=== PATIENT | male | born 1945 | race Caucasian/White ===

== ENCOUNTER → 2021-05-06 10:40 | Outpatient (CLI) | payer OTHER, SELFPAY ==
--- NOTE | 2021-05-06 | DI.US.S_ITS ---
PROCEDURE: US ABD AORTA ANEURYSM SCREEN INDICATIONS: HISTORY OF NICITONE USE TECHNIQUE: Real time scanning was performed of the aorta and iliac arteries, with image documentation. COMPARISON: None. FINDINGS: Aorta: Proximal aortic diameter measures 3.6 x 3.7 cm. Mid-aorta measures 2.4 cm. Distal aortic diameter is 3.4 x 3.5 cm. Iliac arteries: Right common iliac artery is heavily calcified and cannot be measured. Left common iliac artery measures 2.0 cm. IMPRESSION: 1. There is aneurysmal dilatation of the proximal abdominal aorta and distal abdominal aorta. Maximum diameter is 3.7 cm. Comment: Follow-up recommendations for aneurysms of the size are for follow-up ultrasound in 3 years. Dictated by: Gregg Campo M.D. on 05/06/2021 at 15:25 Approved by: Gregg Campo M.D. on 05/06/2021 at 15:43
== END ==
PROVIDERS: PCP Family Medicine; Referring Provider Family Medicine; Visit Provider Family Medicine
DX: Z87.891 Personal history of nicotine dependence (principal); I71.4 Abdominal aortic aneurysm, without rupture
CPT/HCPCS: 76706

== ENCOUNTER → 2021-08-08 13:59 | Outpatient (CLI) | payer OTHER, SELFPAY ==
[2021-08-08 17:00] LABS: COVID19 -Nasal RAPID Negative (Negative)
== END ==
PROVIDERS: PCP Family Medicine; Visit Provider Family Medicine Sleep Medicine
DX: Z20.822 Contact with and (suspected) exposure to COVID-19 (principal)
CPT/HCPCS: 87635; C9803

== ENCOUNTER 2021-08-09 12:26 | Day surgery (SDC) | payer OTHER, SELFPAY ==
--- NOTE | 2021-08-09 12:23 | PM.HP.1 ---
History of Present Illness History of Present Illness Date Patient Seen: 08/09/21 Chief complaint: MOC Narrative: 75 year old male comes in today for consideration of a screening colonoscopy. Last colonoscopy in 2016 indicated for history of colon polyps revealed grade 1 internal hemorrhoids and scattered sigmoid diverticulosis. Five year recall recommended. Prior to that, had a colonoscopy in 1999 that showed a sigmoid polyp at 10 cm that was removed, biopsy benign. Other than some baseline constipation, there have been no lower GI symptoms suggesting disease such as change in bowel habits, bleeding, abdominal pain or anemia. There's been no family history of colon cancer or colon polyps. Overall health issues have been stable, including no major cardiac events for at least 6 weeks. PCP: Dr. Allen Past medical history AAA without rupture, 3.7 cm, 04/2021 History of tobacco use BPH Hypertension Constipation Gout Systolic murmur, 2/ Past surgical history: Tonsillectomy Colonoscopy Family history: Father: Prostate cancer Mother: Melanoma, asthma Social history: , two kids. 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 Two alcoholic drinks per day. History of tobacco use. Patient History Medical History Constipation Gout History of abdominal aortic aneurysm History of BPH History of cardiac murmur History of tobacco use Surgical History (Updated 08/09/21 @ 13:18 by Minnie Brenner RN) Hx of colonoscopy Hx of tonsillectomy Meds Home Medications and Allergies Home Medications Medication Instructions Recorded Confirmed Type tamsulosin 0.4 mg capsule 0.4 mg PO DAILY 08/09/21 08/09/21 History Allergies Allergy/AdvReac Type Severity Reaction Status Date / Time No Known Drug Allergies Allergy Verified 08/09/21 12:51 Review of Systems Review of Systems Narrative: All remaining ROS were reviewed and negative except as addressed. Exam Narrative Exam Narrative: GENERAL: Alert and oriented, appearing stated age and in no acute distress. HEENT: Head normocephalic/atraumatic. Extraocular movements intact. LUNGS: Clear to ausculation bilaterally, no wheezes, rhonchi or rales. CV: Normal S1 and S2 with regular rate and rhythm, no audible murmurs, rubs or gallops. ABDOMEN: Soft, non-tender, non-distended, no organomegaly. Positive bowel sounds. EXTREMITIES: No clubbing, cyanosis, or edema. NEURO: Cranial nerves II through XII grossly intact, no focal deficits. PSYCH: Alert and oriented x 3. SKIN: No concerning lesions. Assessment & Plan Assessment & Plan narrative: 1. History of colon polyps 2. History of sigmoid diverticulosis 3. History of grade 1 internal hemorrhoids 4. Screening for colon cancer Plan for colonoscopy. The nature and character of the procedure as well as anticipated results were discussed. The possibility of not completing the procedure was also discussed. Possible complications including aspiration pneumonia, bleeding, perforation and reaction to medications either for sedation or preparation and missed lesions were discussed. Questions were answered and proceeding to the colonoscopy was elected. Informed consent signed. I sincerely appreciate the referral allowing me to participate in this patient's care. Please contact me with any questions or concerns.
--- NOTE | 2021-08-09 12:33 | PM.OP.COLON ---
Operative Date/Time/Diagnoses Date of procedure: 08/09/21 Procedure Notes SCOAP/Timeout: 1:59 p.m. Procedure in detail: ENDOSCOPIST: Emi Garcia MD Sedation RN: Malaika Murphy RN Sedation start time: 2:00 p.m. Sedation end time: 2:40 p.m. PROCEDURE: Colonoscopy INDICATIONS: 1. History of colon polyps 2. History of sigmoid diverticulosis 3. History of grade 1 internal hemorrhoids 4. Screening for colon cancer MEDICATION: Levsin 0.125 mg sublingual, incremental doses of Versed and fentanyl until appropriate level sedation achieved. ASA CLASS: 2 CECAL WITHDRAWAL TIME: 10 minutes COMPLICATIONS: None. EXTENT OF PROCEDURE: Cecum. QUALITY OF PREP: Good with portions of liquid stool. PROCEDURE: Prior to insertion of the colonoscope, a digital rectal examination was accomplished with circumferential palpation of the distal rectal mucosa without significant findings being noted. The high-definition colonoscope was passed into the rectum in the usual fashion and advanced over to the cecum with some difficulty secondary to tortuosity. The ileocecal valve, appendiceal stoma, and medial wall all could be inspected and no abnormalities were seen. ASCENDING COLON: As the colonoscope was withdrawn, care was taken to expose and inspect the haustral folds and no abnormalities were seen. HEPATIC FLEXURE: Normal, no polyps, diverticula or other abnormalities. TRANSVERSE COLON: Normal, no polyps, diverticula or other abnormalities. DESCENDING COLON: Few scattered diverticula, otherwise, normal, no polyps, or other abnormalities. SIGMOID COLON: Few scattered diverticula, otherwise, normal, no polyps, or other abnormalities. RECTUM: Normal. J maneuver was produced. There was no significant perianal disease. The J maneuver was broken. The remainder of the rectum was inspected and there was no external hemorrhoid disease. The scope was withdrawn. IMPRESSION: 1. Normal colonoscopy 2. Left-sided diverticulosis, mild PLAN: 1. Secondary to age, this can be patient's last colonoscopy. The possibility of a missed lesion including a malignancy has been discussed with the patient previously. Potential alarm symptoms have been discussed and should be reported immediately.
[2021-08-09 12:53] VITALS: BP 219/102; PULSE 78; RESP 16; TEMP 36.9; O2SAT 98
[2021-08-09 12:55] VITALS: BMI 27.3
[2021-08-09 13:00] VITALS: BP 226/100
[2021-08-09] MEDS: HYOSCYAMINE 0.125 MG TABLET PO (13:05)
[2021-08-09] MEDS: LACTATED RINGERS 1,000 ML 200 ML IV (14:00)
[2021-08-09] MEDS: MIDAZOLAM 5 MG/5 ML VIAL IV (14:00)
[2021-08-09] MEDS: fentaNYL 250 MCG/5 ML INJ IV (14:42)
[2021-08-09 14:47] VITALS: BP 152/86; PULSE 74; RESP 21; TEMP 36.8; O2SAT 98
[2021-08-09 14:52] VITALS: BP 172/90; PULSE 69; RESP 13; O2SAT 100
[2021-08-09 14:57] VITALS: BP 181/87; PULSE 67; RESP 15; O2SAT 100
[2021-08-09 15:02] VITALS: BP 184/94; PULSE 66; RESP 15; TEMP 36.6; O2SAT 100
== END 2021-08-09 15:17 | disposition home or self-care (01) ==
PROVIDERS: PCP Family Medicine; Referring Provider Student in an Organized Health Care Education/Training Program; Visit Provider Student in an Organized Health Care Education/Training Program
PROC: 0DJD8ZZ Inspection of Lower Intestinal Tract, Via Natural or Artificial Opening Endoscopic (ICD-10-PCS; CPT 45378; principal; 2021-08-09 13:45)
DX: Z12.11 Encounter for screening for malignant neoplasm of colon (principal); Z86.010 Personal history of colon polyps; K57.30 Diverticulosis of large intestine without perforation or abscess without bleeding
CPT/HCPCS: G0105; J2250; J3010

== ENCOUNTER 2021-12-21 12:57 | Emergency (ER) | payer OTHER, SELFPAY ==
[2021-12-21] VITALS (33 sets, daily range): BP systolic 185–263; BP diastolic 86–123; PULSE 66–82; RESP 12–23; TEMP 36.8; O2SAT 94–100; BMI 26.6
--- NOTE | 2021-12-21 13:10 | DI.RAD.S_ITS ---
PROCEDURE: XR CHEST 1V INDICATIONS: chest pain TECHNIQUE: One view of the chest was acquired. COMPARISON: None. FINDINGS: Surgical changes and devices: None. Lungs and pleura: Lungs are clear. No pleural effusions or pneumothorax. Mediastinum: Mediastinal contours appear normal. Heart size is normal. Bones and chest wall: No suspicious bony lesions. Overlying soft tissues appear unremarkable. IMPRESSION: No acute cardiopulmonary pathology. Dictated by: Shahab Amezquita M.D. on 12/21/2021 at 13:39 Approved by: Shahab Amezquita M.D. on 12/21/2021 at 13:47
--- NOTE | 2021-12-21 13:50 | DI.CT.S_ITS ---
PROCEDURE: CT ANGIO CHEST ABDOMEN PELVIS INDICATIONS: syncope extreme HTN TECHNIQUE: Precontrast 5 mm thick sections acquired from the lung apices to the iliac crests. After the administration of intravenous contrast, 2.5 mm thick sections again acquired from the lung apices to the iliac crests. Maximum intensity projection (MIP) oblique sagittal and coronal reformats were then acquired. For radiation dose reduction, the following was used: automated exposure control. COMPARISON: None. FINDINGS: Chest: Cardiovascular: Heart size is overall normal, however, the left ventricular wall appears thickened. No evidence of central pulmonary embolism, aortic aneurysm or dissection. Dense coronary artery vascular calcification. Lungs and pleural spaces: The lung terry are clear without nodule, infiltrate or interstitial prominence. Pleural spaces show no effusion or pneumothorax. Lymph nodes: No mediastinal, hilar or axillary adenopathy. Mediastinum: Unremarkable. No hiatal hernia. Thyroid within normal limits. Chest Wall and Bones: Unremarkable. No acute fracture. Left axillary 2.2 cm subcutaneous nodule, probable sebaceous cyst. Focal edema noted in the subcutaneous tissue over the left pectoralis muscle Abdomen and Pelvis: Liver: Normal in size and attenuation. No contour deformity present. Biliary system: No calcified cholelithiasis or pericholecystic inflammation. No intra or extrahepatic bile duct dilatation. Pancreas: Unremarkable without mass or inflammation evident. Spleen: Normal in size and density. Adrenals: Normal morphology and density. Reproductive system: Prostatic hypertrophy elevates the bladder floor. Urinary system: Normal renal size and attenuation. No renal calculi, hydronephrosis, or solid mass present. Urinary bladder unremarkable. Gastrointestinal system: The bowel is unremarkable with no evidence of bowel obstruction or inflammation. The stomach appears unremarkable. Appendix: No findings to suggest acute appendicitis. Lymph nodes: No mesenteric or retroperitoneal adenopathy. Peritoneal spaces: No free air. No free fluid. Vasculature: Distal infrarenal abdominal aortic aneurysm measures 3.5 x 3.3 cm. There is a 2nd abdominal aortic aneurysm at the level the renal arteries measuring 3.5 cm as well. Atherosclerotic vascular calcification noted. Abdominal wall: Bilateral inguinal hernia(s) contain fat without bowel involvement. Musculoskeletal: Normal bone mineralization. Degenerative disc disease and arthropathy noted in lower lumbar spine. No acute fractures. Endplate sclerosis noted associated with L4-5, at L1, and the superior endplate of the T11 IMPRESSION: 1. Infrarenal abdominal aortic aneurysms measure up to 3.5 cm. No evidence of aortic dissection in the chest, abdomen and pelvis. 2. Significant subcutaneous edema over the left pectoralis muscle. Correlate with history of trauma. No rib fracture. 3. Degenerative changes as above Approved by: Keegan Cohen M.D. on 12/21/2021 at 14:32
--- NOTE | 2021-12-21 13:50 | DI.CT.S_ITS ---
PROCEDURE: CT HEAD/BRAIN WO CON INDICATIONS: syncope TECHNIQUE: Noncontrast 5 mm thick angled axial sections acquired from the foramen magnum to the vertex, with coronal and sagittal reformats. For radiation dose reduction, the following was used: automated exposure control, adjustment of mA and/or kV according to patient size. COMPARISON: None. FINDINGS: Image quality: Excellent. CSF spaces: Basal cisterns are patent. No extra-axial fluid collections. Ventricles are normal in size and shape. Brain: No midline shift. No intracranial masses or hemorrhage. Mahmood-white matter interface is normal. Moderate cerebral and cerebellar volume loss with multifocal white matter chronic ischemic change noted. Atherosclerotic calcification noted associated with cavernous segments of both internal carotid arteries. Skull and face: Calvarium and visualized facial bones are intact, without suspicious lesions. Sinuses: Visualized sinuses and mastoids are clear. IMPRESSION: Atrophy and chronic ischemic change without acute hemorrhage or mass effect Approved by: Keegan Cohen M.D. on 12/21/2021 at 14:33
[2021-12-21 13:55] LABS: Add Manual Diff / Slide Review NO; Basophils Absolute Auto 100 /uL (0-100); Basophils Percent Auto 1.3 % (0-2); Eosinophils Absolute Auto 100 /uL (0-450); Eosinophils Percent Auto 1.6 % (2-4); Hemoglobin 15.8 g/dL (13.5-17.5); Lymphocytes Absolute Auto 1400 /uL (1100-4500); Lymphocytes Percent Auto 15.8 % (25-40); Mean Corpuscular HGB Conc 35.2 % (30-36); Mean Corpuscular Hemoglobin 32.1 PG (26-34); Mean Corpuscular Volume 91.2 fL (80-100); Monocytes Absolute Auto 700 /uL (0-900); Monocytes Percent Auto 7.5 % (3-14); Neutrophils Absolute Auto 6600 /uL (1500-7000); Neutrophils Percent Auto 73.8 % (50-75); Platelet Count 283 X10^3/uL (150-400); Red Blood Cell Count 4.93 X10^6/uL (4.5-5.9); Red Cell Distribution Width 12.9 % (11.6-14.8); White Blood Cell Count 8.9 X10^3/uL (4.5-11.0)
--- NOTE | 2021-12-21 13:56 | ED.SYNCOPE ---
HPI - Syncope General Chief Complaint: Syncope Stated Complaint: Fall hit to chest Time Seen by Provider: 12/21/21 13:15 Source: patient Mode of arrival: Ambulatory History of Present Illness HPI narrative: Patient is a 76-year-old male who was noncompliant with his blood pressure medications presenting today 1st with a syncopal episode. He said he was walking on the beach when suddenly he fell down face forward. He has a bruise on left side of his chest. He remembers falling possibly brief loss of consciousness but he was able to get himself. He has minimal headache no numbness tingling or weakness. No palpitations dizziness lightheadedness abdominal pain nausea or vomiting. States that this happened 1 other time a couple months ago. He has had some low-grade headaches. He is noted to be extremely hypertensive with a blood pressure of 263/123 which is repeated at 249/116. Patient is relatively asymptomatic except he as had 2 syncopal episodes for the past couple of months. Related Data Home Medications Medication Instructions Recorded Confirmed tamsulosin 0.4 mg capsule 0.4 mg PO DAILY 08/09/21 12/14/21 Allergies Allergy/AdvReac Type Severity Reaction Status Date / Time No Known Drug Allergies Allergy Verified 12/14/21 08:54 Review of Systems Review of Systems Narrative: GENERAL: Denies chills, fatigue, malaise, fever, sweats, travel HEENT: Denies sinus pain, ear pain, sore throat, difficulty swallowing, neck pain RESPIRATORY: Denies dyspnea, cough, wheezing, hemoptysis, sputum. CARDIOVASCULAR:+ syncope GASTROINTESTINAL: Denies nausea, vomiting, abdominal pain, diarrhea, constipation, melena. : Denies dysuria, frequency, incontinence, hematuria, urinary retention, flank pain. MUSCULOSKELETAL: Denies weakness, joint pain, or bony pain SKIN: No rash, no erythema, no pruritus NEUROLOGIC: Denies weakness, dizziness, headache, numbness, change in speech, confusion PSYCHIATRIC: No concerning psychosocial issues. 12 point review of systems is negative except for those stated above and HPI Patient History Medical History Constipation Gout History of abdominal aortic aneurysm History of BPH History of cardiac murmur History of tobacco use Surgical History Hx of colonoscopy Hx of tonsillectomy Social History household members: spouse Smoking Status: Former smoker alcohol intake: current Smoking Status: Former smoker alcohol intake frequency: 0-2 drinks per day Substance Use Type: does not use Exam Initial Vital Signs Initial Vital Signs: Vital Signs Temperature 98.3 F 12/21/21 13:02 Pulse Rate 82 12/21/21 13:02 Respiratory Rate 16 12/21/21 13:02 Blood Pressure 263/123 H 12/21/21 13:02 Pulse Oximetry 99 12/21/21 13:02 Oxygen Delivery Method 12/21/21 13:02 GENERAL: Alert pleasant 36-year-old and in no acute distress. HEENT: Head atraumatic,EOMI, pupils reactive, face symmetric, moist mucous membranes CARDIOVASCULAR: Regular rate and rhythm without murmurs, rubs or gallops. RESPIRATORY: Breath sounds equal bilaterally, no wheezes rales or rhonchi. ABDOMEN: Soft, nontender. Normoactive bowel sounds all 4 quadrants. No guarding or rebound. EXTREMITIES: Normal range of motion, no clubbing or edema. Neurovascularly intact NEUROLOGICAL: Alert and oriented x4.Normal gait and speech. Cranial nerves II through XII grossly intact. Good [id number], good [id number], strength equal bilaterally, no dysarthria or aphasia, sensation in tact to soft touch bilaterally, no visual changes, no facial droop SKIN: Warm, dry, no laceration, no petechiae, no rashes or lesions. Scores NIH Stroke Scale Level of Conciousness: Alert, keenly responsive Ask month/age: Answers both questions correctly. Open/close eyes, close hand: Performs both tasks correctly Best gaze horizontal: Normal Visual terry: No visual loss Facial palsy: Normal symetrical movement Left arm drift: No drift for full 10 sec Right arm drift: No drift for full 10 sec Left leg drift: No drift for full 5 sec Right leg drift: No drift for full 5 sec Limb ataxia: Absent Sensory on face/arms/legs: Normal, no sensory loss Best language: No aphasia, normal Dysarthria: Normal Extinction or inattention: No abnormality Total NIH Stroke scale score: 0 Course Orders Ordered: Discontinued Medications Labetalol HCl (Labetalol 20 Mg/4 Ml Syringe) 10 mg IV NOW ONE Stop: 12/21/21 13:51 Last Admin: 12/21/21 14:36 Dose: 10 mg Documented By: LATOYA Losartan Potassium (Losartan 50 Mg Tablet) 50 mg PO NOW ONE Stop: 12/21/21 17:01 Last Admin: 12/21/21 17:40 Dose: 50 mg Documented By: BS Metoprolol Succinate (Metoprolol Er 50 Mg Tablet) 50 mg PO NOW ONE Stop: 12/21/21 17:01 Last Admin: 12/21/21 17:41 Dose: 50 mg Documented By: BS Vital Signs Vital signs: Vital Signs - 8 hr 12/21/21 13:02 12/21/21 13:36 12/21/21 13:38 Temperature 98.3 F Pulse Rate 82 78 77 Respiratory Rate 16 23 18 Blood Pressure 263/123 H Pulse Oximetry 99 99 99 Oxygen Delivery Method Room Air 12/21/21 13:38 12/21/21 14:07 12/21/21 14:27 Temperature Pulse Rate 77 67 Respiratory Rate 18 Blood Pressure 249/116 H 185/86 H Pulse Oximetry 96 96 Oxygen Delivery Method Room Air 12/21/21 15:21 12/21/21 14:12 12/21/21 14:12 Temperature Pulse Rate 75 Respiratory Rate 20 Blood Pressure 210/98 H 228/107 H Pulse Oximetry 98 Oxygen Delivery Method 12/21/21 14:17 12/21/21 14:17 12/21/21 14:30 Temperature Pulse Rate 70 67 Respiratory Rate 20 12 Blood Pressure 185/86 H Pulse Oximetry 98 98 Oxygen Delivery Method 12/21/21 14:31 12/21/21 14:31 12/21/21 14:54 Temperature Pulse Rate 68 Respiratory Rate 14 Blood Pressure 211/97 H 200/92 H Pulse Oximetry 98 Oxygen Delivery Method 12/21/21 14:54 12/21/21 14:55 12/21/21 14:55 Temperature Pulse Rate 67 67 Respiratory Rate 12 17 Blood Pressure 204/94 H Pulse Oximetry 97 97 Oxygen Delivery Method 12/21/21 14:56 12/21/21 14:56 12/21/21 15:00 Temperature Pulse Rate 67 Respiratory Rate 13 Blood Pressure 210/95 H 200/94 H Pulse Oximetry 97 Oxygen Delivery Method 12/21/21 15:00 12/21/21 15:10 12/21/21 15:10 Temperature Pulse Rate 66 67 Respiratory Rate 13 Blood Pressure 213/102 H Pulse Oximetry 98 98 Oxygen Delivery Method 12/21/21 15:20 12/21/21 15:20 12/21/21 15:30 Temperature Pulse Rate 67 Respiratory Rate 15 Blood Pressure 210/98 H 198/98 H Pulse Oximetry 98 Oxygen Delivery Method 12/21/21 15:30 12/21/21 15:40 12/21/21 15:40 Temperature Pulse Rate 67 68 Respiratory Rate 12 22 Blood Pressure 192/93 H Pulse Oximetry 98 94 Oxygen Delivery Method 12/21/21 15:54 12/21/21 15:54 Temperature Pulse Rate 72 Respiratory Rate 14 Blood Pressure 218/107 H Pulse Oximetry 100 Oxygen Delivery Method Room Air MDM - Syncope Lab Data Result diagrams: 12/21/21 13:49 12/21/21 13:49 Labs: Lab Results 12/21/21 12/21/21 12/21/21 Range/Units 13:44 13:44 13:49 WBC 8.9 (4.5-11.0) X10^3/uL RBC 4.93 (4.5-5.9) X10^6/uL Hgb 15.8 (13.5-17.5) g/dL Hct 45.0 (41-53) % MCV 91.2 (80-100) fL MCH 32.1 (26-34) PG MCHC 35.2 (30-36) % RDW 12.9 (11.6-14.8) % Plt Count 283 (150-400) X10^3/uL Neut % (Auto) 73.8 (50-75) % Lymph % (Auto) 15.8 L (25-40) % [place] % (Auto) 7.5 (3-14) % Eos % (Auto) 1.6 L (2-4) % Baso % (Auto) 1.3 (0-2) % Neut # (Auto) 6600 (2918-3422) /uL Lymph # (Auto) 1400 (9268-2192) /uL [place] # (Auto) 700 (0-900) /uL Eos # (Auto) 100 (0-450) /uL Baso # (Auto) 100 (0-100) /uL PT (10.1-12.7) SECONDS INR (0.9-1.3) APTT (26-36) SECONDS Sodium (137-145) mmol/L Potassium (3.4-5.1) mmol/L Chloride (98-107) mmol/L Carbon Dioxide (22-32) mmol/L BUN (9-20) mg/dL Creatinine (0.66-1.25) mg/dL Estimated GFR (>60) mL/min BUN/Creatinine Ratio (6-22) Glucose (80-110) mg/dL Calcium (8.4-10.2) mg/dL Magnesium (1.6-2.3) mg/dL Total Bilirubin (0.2-1.3) mg/dL AST (17-59) IU/L ALT (<50) IU/L Alkaline Phosphatase (38-126) U/L Total Creatine Kinase (55-170) U/L CK-MB (CK-2) (<2.37) ng/mL CK-MB (CK-2) Rel Index (1.5-5.0) % Troponin I (0.01-0.034) ng/mL Total Protein (6.3-8.2) g/dL Albumin (3.5-5.0) g/dL Globulin (1.7-4.1) g/dL Albumin/Globulin Ratio (1.0-2.8) Lipase (23-300) U/L Urine Color Yellow Urine Appearance Clear Urine pH 7.0 (4.5-8.0) Ur Specific [place] <=1.005 (1.000-1.035) Urine Protein Negative (Negative) Urine Glucose (UA) Negative (Negative) g/dL Urine Ketones Negative (NEGATIVE) Urine Occult Blood Negative (Negative) Urine Nitrate Negative (Negative) Urine Bilirubin Negative (NEGATIVE) Urine Urobilinogen 0.2 (0.2) E.U./dL Ur Leukocyte Esterase Negative (NEGATIVE) Urine RBC None seen (0-5/HPF) Urine WBC None seen (0-5/HPF) Ur Squamous Epith Cells None seen (0-5/HPF) Urine Bacteria None seen (None) Ur Culture Indicated? Cult not indicated SARS-CoV-2 (PCR) Negative (Negative) 12/21/21 12/21/21 Range/Units 13:49 13:49 WBC (4.5-11.0) X10^3/uL RBC (4.5-5.9) X10^6/uL Hgb (13.5-17.5) g/dL Hct (41-53) % MCV (80-100) fL MCH (26-34) PG MCHC (30-36) % RDW (11.6-14.8) % Plt Count (150-400) X10^3/uL Neut % (Auto) (50-75) % Lymph % (Auto) (25-40) % [place] % (Auto) (3-14) % Eos % (Auto) (2-4) % Baso % (Auto) (0-2) % Neut # (Auto) (0937-7194) /uL Lymph # (Auto) (1094-2462) /uL [place] # (Auto) (0-900) /uL Eos # (Auto) (0-450) /uL Baso # (Auto) (0-100) /uL PT 11.7 (10.1-12.7) SECONDS INR 1.0 (0.9-1.3) APTT 33 (26-36) SECONDS Sodium 129 L (137-145) mmol/L Potassium 4.5 (3.4-5.1) mmol/L Chloride 94 L (98-107) mmol/L Carbon Dioxide 26 (22-32) mmol/L BUN 14 (9-20) mg/dL Creatinine 0.69 (0.66-1.25) mg/dL Estimated GFR > 60 (>60) mL/min BUN/Creatinine Ratio 20.3 (6-22) Glucose 104 (80-110) mg/dL Calcium 9.9 (8.4-10.2) mg/dL Magnesium 2.2 (1.6-2.3) mg/dL Total Bilirubin 0.9 (0.2-1.3) mg/dL AST 37 (17-59) IU/L ALT 22 (<50) IU/L Alkaline Phosphatase 120 (38-126) U/L Total Creatine Kinase 132 (55-170) U/L CK-MB (CK-2) 3.46 H (<2.37) ng/mL CK-MB (CK-2) Rel Index 2.6 (1.5-5.0) % Troponin I 0.014 (0.01-0.034) ng/mL Total Protein 8.8 H (6.3-8.2) g/dL Albumin 4.8 (3.5-5.0) g/dL Globulin 4.0 (1.7-4.1) g/dL Albumin/Globulin Ratio 1.2 (1.0-2.8) Lipase 79 (23-300) U/L Urine Color Urine Appearance Urine pH (4.5-8.0) Ur Specific [place] (1.000-1.035) Urine Protein (Negative) Urine Glucose (UA) (Negative) g/dL Urine Ketones (NEGATIVE) Urine Occult Blood (Negative) Urine Nitrate (Negative) Urine Bilirubin (NEGATIVE) Urine Urobilinogen (0.2) E.U./dL Ur Leukocyte Esterase (NEGATIVE) Urine RBC (0-5/HPF) Urine WBC (0-5/HPF) Ur Squamous Epith Cells (0-5/HPF) Urine Bacteria (None) Ur Culture Indicated? SARS-CoV-2 (PCR) (Negative) Imaging Data CT scan - abdomen/pelvis: Radiologist's Impression: CT Scan Report Signed Patient: Annia Waite MR#: [id number] : 1945 Acct:[id number] Age/Sex: 76 / M Date of Service: 12/21/21 Loc: ED Accession Number: [id number] ?? Procedure: CT angio chest abdomen pelvis Ordering Provider: Belgica Bergman D.O. PROCEDURE:? CT ANGIO CHEST ABDOMEN PELVIS ? INDICATIONS:? syncope extreme HTN ? TECHNIQUE:? Precontrast 5 mm thick sections acquired from the lung apices to the iliac crests.? After the administration of intravenous contrast, 2.5 mm thick sections again acquired from the lung apices to the iliac crests.? Maximum intensity projection (MIP) oblique sagittal and coronal reformats were then acquired.? For radiation dose reduction, the following was used:? automated exposure control.? ? COMPARISON:? None. ? FINDINGS: ? Chest: ? Cardiovascular:? Heart size is overall normal, however, the left ventricular wall appears thickened.? No evidence of central pulmonary embolism, aortic aneurysm or dissection.? Dense coronary artery vascular calcification. ? Lungs and pleural spaces:? The lung terry are clear without nodule, infiltrate or interstitial prominence.? Pleural spaces show no effusion or pneumothorax. ? Lymph nodes:? No mediastinal, hilar or axillary adenopathy. ? Mediastinum:? Unremarkable.? No hiatal hernia.? Thyroid within normal limits. ? Chest Wall and Bones:? Unremarkable.? No acute fracture.? Left axillary 2.2 cm subcutaneous nodule, probable sebaceous cyst.? Focal edema noted in the subcutaneous tissue over the left pectoralis muscle ? Abdomen and Pelvis: ? Liver:? Normal in size and attenuation. No contour deformity present. Biliary system:? No calcified cholelithiasis or pericholecystic inflammation.? No intra or extrahepatic bile duct dilatation. ? Pancreas:? Unremarkable without mass or inflammation evident. ? Spleen:? Normal in size and density. ? Adrenals:? Normal morphology and density. ? Reproductive system:? Prostatic hypertrophy elevates the bladder floor.? ? Urinary system:? Normal renal size and attenuation. No renal calculi, hydronephrosis, or solid mass present.? Urinary bladder unremarkable. ? Gastrointestinal system:? The bowel is unremarkable with no evidence of bowel obstruction or inflammation. The stomach appears unremarkable.? ? Appendix:? No findings to suggest acute appendicitis. ? Lymph nodes:? No mesenteric or retroperitoneal adenopathy. ? Peritoneal spaces: ? No free air. No free fluid.? ? Vasculature:? Distal infrarenal abdominal aortic aneurysm measures 3.5 x 3.3 cm.? There is a 2nd abdominal aortic aneurysm at the level the renal arteries measuring 3.5 cm as well.? Atherosclerotic vascular calcification noted. ? Abdominal wall:? Bilateral inguinal hernia(s) contain fat without bowel involvement. ? Musculoskeletal:? Normal bone mineralization.? Degenerative disc disease and arthropathy noted in lower lumbar spine.? No acute fractures.? Endplate sclerosis noted associated with L4-5, at L1, and the superior endplate of the T11 ? IMPRESSION: ? 1.? Infrarenal abdominal aortic aneurysms measure up to 3.5 cm. No evidence of aortic dissection in the chest, abdomen and pelvis. ? 2. Significant subcutaneous edema over the left pectoralis muscle.? Correlate with history of trauma.? No rib fracture. ? 3. Degenerative changes as above ? ? ? Approved by: Keegan Cohen M.D. on 12/21/2021 at 14:32? ECG Data Interpretation: Normal sinus rhythm rate 79 WI interval 216 QRS [address] changes no T-wave inversions-- no priors MDM Narrative Medical decision making narrative: Patient is noted to be quite hypertensive he responded well to labetalol however only transiently. He really does not have any chest pain or headache. He is found to have an abdominal aortic aneurysm, with hypertension. I did CP who agrees as blood pressure needs to be aggressively controlled. Recommend losartan and metoprolol and he will see the patient in the morning. There will also be close follow-up for abdominal aortic aneurysm. There is an aortic clinic through [place] [phone] Discharge Plan Departure Patient Disposition: Home Clinical Impression: Hypertension, AAA (abdominal aortic aneurysm) Instructions: High Blood Pressure, DI for Abdominal Aortic Aneurysm Repair Activity Restrictions/Additional Instructions: *You have been diagnosed with high blood pressure an abdominal aortic aneurysm *What to do: Please monitor your blood pressure. Get a blood pressure cuff check it once daily and record it. Your PCP will likely start you on blood pressure medications tomorrow. *Continue to take medications as directed *Follow up with your primary care provider tomorrow. Please call his office 1st thing in the morning he is expecting to see you *Return to ER if you should have recurrent episode of passing out, headache, chest pain, abdominal pain or any new, worsening or concerning symptoms Prescriptions: No Action tamsulosin 0.4 mg capsule 0.4 mg PO DAILY Referrals: Den Allen MD [Primary Care Provider] - Visit Report Forms: Patient Portal/API
[2021-12-21 13:59] LABS: Prothrombin Time 11.7 SECONDS (10.1-12.7)
[2021-12-21 14:02] LABS: PTT Partial Thromboplastin Tim 33 SECONDS (26-36)
[2021-12-21 14:04] LABS: Alanine Aminotransferase 22 IU/L (<50); Albumin 4.8 g/dL (3.5-5.0); Albumin Globulin Ratio 1.2 (1.0-2.8); Alkaline Phosphatase 120 U/L (38-126); Aspartate Aminotransferase 37 IU/L (17-59); BUN Creatinine Ratio 20.3 (6-22); Bilirubin Total 0.9 mg/dL (0.2-1.3); Blood Urea Nitrogen 14 mg/dL (9-20); Calcium 9.9 mg/dL (8.4-10.2); Carbon Dioxide 26 mmol/L (22-32); Chloride 94 mmol/L (98-107); Creatine Kinase 132 U/L (55-170); Estimated Glomerular Filt Rate > 60 mL/min (>60); Glucose 104 mg/dL (80-110); HEMOLYSIS 25 (0-50); Lipase 79 U/L (23-300); Magnesium 2.2 mg/dL (1.6-2.3); Potassium 4.5 mmol/L (3.4-5.1); Sodium 129 mmol/L (137-145); Total Protein 8.8 g/dL (6.3-8.2)
[2021-12-21 14:08] LABS: Appearance Urine UA CLEAR; Bilirubin Urine UA NEGATIVE (NEGATIVE); Color Urine UA YELLOW; Glucose Urine UA NEGATIVE (Negative); Ketones Urine UA NEGATIVE (NEGATIVE); Leukocyte Esterase Urine UA NEGATIVE (NEGATIVE); Nitrite Urine UA NEGATIVE (Negative); Occult Blood Urine UA NEGATIVE (Negative); Protein Urine UA NEGATIVE (Negative); Specific Gravity Urine UA <=1.005 (1.000-1.035); Urobilinogen Urine UA 0.2 E.U./dL (0.2)
[2021-12-21 14:15] LABS: Troponin I 0.014 ng/mL (0.01-0.034)
[2021-12-21 14:18] LABS: CKMB % Relative Index 2.6 % (1.5-5.0); Creatine Kinase MB 3.46 ng/mL (<2.37)
[2021-12-21 14:27] LABS: Bacteria Urine None Seen; Culture Indicated Urine Cult Not Indicated; RBC Urine None Seen (0-5/HPF); Squamous Epithelial Cell Urine None Seen (0-5/HPF); WBC Urine None Seen (0-5/HPF)
[2021-12-21 14:28] LABS: COVID19 -Nasal RAPID Negative (Negative)
[2021-12-21] MEDS: LABETALOL 20 MG/4 ML SYRINGE 10 MG IV (14:36)
[2021-12-21] MEDS: LOSARTAN 50 MG TABLET PO (17:40)
[2021-12-21] MEDS: METOPROLOL ER 50 MG TABLET PO (17:41)
== END 2021-12-21 18:00 | disposition home or self-care (01) ==
PROVIDERS: Emergency Provider Emergency Medicine; PCP Family Medicine
DX: R55 Syncope and collapse (principal); Z91.14 Patient's other noncompliance with medication regimen; I10 Essential (primary) hypertension; I71.4 Abdominal aortic aneurysm, without rupture; S20.212A Contusion of left front wall of thorax, initial encounter; W18.30XA Fall on same level, unspecified, initial encounter; Y92.832 Beach as the place of occurrence of the external cause
CPT/HCPCS: 36415; 70450; 71045; 71275; 74174; 80053; 81001; 82550; 82553; 83690; 83735; 84484; 85025; 85610; 85730; 87635; 93005; 96374; 99284; C9803; Q9967

== ENCOUNTER 2023-08-23 11:18 | Emergency (ER) | payer OTHER, SELFPAY ==
[2023-08-23] VITALS (20 sets, daily range): BP systolic 169–252; BP diastolic 79–138; PULSE 39–75; RESP 5–22; TEMP 36.8; O2SAT 78–100; BMI 27.3
--- NOTE | 2023-08-23 11:40 | DI.RAD.S_ITS ---
PROCEDURE: XR CHEST 1V INDICATIONS: chest pain TECHNIQUE: One view of the chest was acquired. COMPARISON: [facility], CR, XR CHEST 1V, 12/21/2021, 13:22. FINDINGS: Surgical changes and devices: None. Lungs and pleura: Lungs are clear. No pleural effusions or pneumothorax. Mediastinum: Mediastinal contours appear normal. Heart size is normal. Bones and chest wall: No suspicious bony lesions. Overlying soft tissues appear unremarkable. IMPRESSION: No acute cardiopulmonary abnormality is seen. Dictated by: Barbra Giron M.D. on 08/23/2023 at 12:19 Approved by: Barbra Giron M.D. on 08/23/2023 at 12:19
[2023-08-23 12:19] LABS: Add Manual Diff / Slide Review NO; Basophils Absolute Auto 100 /uL (0-100); Basophils Percent Auto 1.1 % (0-2); Eosinophils Absolute Auto 200 /uL (0-450); Eosinophils Percent Auto 2.9 % (2-4); Hematocrit 43.8 % (41-53); Hemoglobin 15.2 g/dL (13.5-17.5); Lymphocytes Absolute Auto 1500 /uL (1100-4500); Mean Corpuscular HGB Conc 34.7 % (30-36); Mean Corpuscular Hemoglobin 32.5 PG (26-34); Mean Corpuscular Volume 93.6 fL (80-100); Monocytes Absolute Auto 700 /uL (0-900); Monocytes Percent Auto 11.5 % (3-14); Neutrophils Absolute Auto 3500 /uL (1500-7000); Neutrophils Percent Auto 59.5 % (50-75); Platelet Count 212 X10^3/uL (150-400); Red Blood Cell Count 4.68 X10^6/uL (4.5-5.9); Red Cell Distribution Width 12.7 % (11.6-14.8)
[2023-08-23 12:32] LABS: Prothrombin Time 11.3 SECONDS (9.4-12.5)
[2023-08-23 12:35] LABS: PTT Partial Thromboplastin Tim 37 SECONDS (25.1-36.5)
[2023-08-23 12:46] LABS: Alanine Aminotransferase 23 IU/L (<50); Albumin 4.9 g/dL (3.5-5.0); Albumin Globulin Ratio 1.4 (1.0-2.8); Alkaline Phosphatase 100 U/L (38-126); Aspartate Aminotransferase 34 IU/L (17-59); BUN Creatinine Ratio 22.7 (6-22); Bilirubin Total 1.1 mg/dL (0.2-1.3); Blood Urea Nitrogen 15 mg/dL (9-20); Calcium 10.3 mg/dL (8.4-10.2); Carbon Dioxide 29 mmol/L (22-32); Chloride 100 mmol/L (98-107); Creatine Kinase 49 U/L (55-170); Estimated Glomerular Filt Rate > 60 mL/min (>60); Globulin 3.4 g/dL (1.7-4.1); Glucose 105 mg/dL (80-110); HEMOLYSIS < 15 (0-50); Lipase 83 U/L (23-300); Magnesium 2.2 mg/dL (1.6-2.3); Sodium 134 mmol/L (137-145); Total Protein 8.3 g/dL (6.3-8.2)
[2023-08-23 12:50] LABS: Potassium 5.5 mmol/L (3.4-5.1)
[2023-08-23 12:57] LABS: Troponin I < 0.012 ng/mL (0.01-0.034)
--- NOTE | 2023-08-23 13:30 | PC.NURSE ---
Patient had an episode on Sunday where he was on a beach and began feeling faint. He got himself together and then drove home while having trouble focusing on the road. He was seen by Dr gama on sunday and is supposed to have a ZIO patch. Today his made him have his BP taken and it was elevated at home. He states that he is intermittently dizzy and confused but feeling better at the moment. Provider notifed. ORder for head CT is in. Will continue to monitor.
--- NOTE | 2023-08-23 13:32 | ED_ITS ---
HPI - General Adult General Chief complaint: Hypertension Stated complaint: high blood pressure Time Seen by Provider: 08/23/23 13:32 Source: patient Mode of arrival: Ambulatory History of Present Illness HPI narrative: This is a 77-year-old male with history of hypertension, BPH who presents with complaint of elevated blood pressure. Patient states last Sunday he went for a walk had to go down big here got dizzy did not fall or pass out but felt like he might. He thought he was not focusing very well. Dizzy has felt improved since. He went to see his primary care physician on Sunday who referred him to Cardiology and ordered a ZIO patch which is in the mail. He states he has been prior off to see Cardiology but does not have an appointment time yet. He states since no headaches no chest pain no shortness of breath he has not had any persistent dizziness no passing out. No nausea or vomiting no urinary symptoms. No new urinary symptoms. He does have some nocturia. No new swelling in extremities. No other GI symptoms. Patient states he is on metoprolol 50 mg extended release nightly, did have decreased 1 or 2 months ago because of lightheadedness, he is also on losartan 100 mg nightly and tamsulosin 0.4 mg nightly. Does not take any aspirin or thinners. Patient denies any recent surgeries. No known drug allergies. No tobacco, has 1 or 2 alcoholic drinks nightly, no recreational drugs. Dr. Allen is his primary care physician. He is in process of being followed up with Cardiology at [facility]. Related Data Home Medications Medication Instructions Recorded Confirmed tamsulosin 0.4 mg capsule 0.4 mg PO DAILY 08/09/21 12/14/21 Previous Rx's Medication Instructions Recorded amlodipine 5 mg tablet 5 mg PO DAILY #10 tabs 08/23/23 hydrochlorothiazide 12.5 mg tablet 12.5 mg PO DAILY #10 tabs 08/23/23 metoprolol succinate 25 mg capsule 25 mg PO DAILY #30 ea 08/23/23 sprinkle, ext. release 24 hr Allergies Allergy/AdvReac Type Severity Reaction Status Date / Time No Known Drug Allergies Allergy Verified 12/14/21 08:54 Review of Systems Review of Systems ROS Unobtainable: All systems reviewed & are unremarkable except as noted in HPI and below Patient History Medical History History of cardiac murmur Constipation History of BPH History of tobacco use Gout History of abdominal aortic aneurysm Surgical History Hx of tonsillectomy Hx of colonoscopy Social History household members: spouse Smoking Status: Former smoker alcohol intake: current Smoking Status: Former smoker alcohol intake frequency: 0-2 drinks per day Substance Use Type: does not use Exam Narrative Exam Narrative: GENERAL: Alert and oriented x three, well-appearing male in mild distress HEENT: Head normocephalic, atraumatic, EOMI, pupils reactive, face symmetric, moist mucous membranes NECK: Supple, full range of motion CARDIOVASCULAR: Irregular rate and rhythm without murmurs, rubs or gallops. No JVD. No edema bilateral extremities. RESPIRATORY: Breath sounds equal bilaterally, no wheezes rales or rhonchi. No tachypnea or accessory muscle use. ABDOMEN: Soft, nontender. Normoactive bowel sounds all 4 quadrants. No guarding or rebound, rigidity, no mass : No CVA tenderness EXTREMITIES: Normal range of motion, no clubbing or edema. Neurovascularly intact NEUROLOGICAL: Cranial nerves II through XII grossly intact. Moving all extremities SKIN: Warm, dry, no petechiae, no rashes or lesions. Initial Vital Signs Initial Vital Signs: Vital Signs Temperature 98.3 F 08/23/23 11:25 Pulse Rate 63 08/23/23 11:25 Respiratory Rate 16 08/23/23 11:25 Blood Pressure 238/113 H 08/23/23 11:25 Pulse Oximetry 98 08/23/23 11:25 Oxygen Delivery Method Room Air 08/23/23 11:25 Course Orders Ordered: ED Orders 08/23/23 11:40 XR chest 1V Stat EKG-12 Lead Stat 08/23/23 12:11 Complete Blood Count AUTO DIFF Stat Comprehensive Metabolic Panel Stat Lipase Stat Magnesium Stat PTT Partial Thromboplastin Shoaib Stat Prothrombin Time INR Stat Troponin & CK Cardiac Panel Stat 08/23/23 13:32 CT head/brain wo con Stat Discontinued Medications Hydralazine HCl (Hydralazine 20 Mg/Ml Vial) 10 mg IV Q6HR PRN PRN Reason: Hypertension Hydralazine HCl (Hydralazine 20 Mg/Ml Vial) 5 mg IV NOW ONE Stop: 08/23/23 14:12 Last Admin: 08/23/23 14:16 Dose: 5 mg Documented By: MAGGY Hydralazine HCl (Hydralazine 25 Mg Tablet) 25 mg PO NOW ONE Stop: 08/23/23 15:19 Last Admin: 08/23/23 15:38 Dose: 25 mg Documented By: MAGGY Vital Signs Vital signs: Vital Signs - 8 hr 08/23/23 11:25 08/23/23 12:45 08/23/23 13:16 Temperature 98.3 F Pulse Rate 63 Respiratory Rate 16 Blood Pressure 238/113 H 184/79 H Pulse Oximetry 98 100 Oxygen Delivery Method Room Air 08/23/23 13:17 08/23/23 13:17 08/23/23 13:27 Temperature Pulse Rate 59 L 72 Respiratory Rate 22 Blood Pressure 252/116 H Pulse Oximetry 99 100 Oxygen Delivery Method 08/23/23 13:27 08/23/23 13:30 08/23/23 13:30 Temperature Pulse Rate 70 Respiratory Rate 13 Blood Pressure 212/98 H 231/138 H Pulse Oximetry 99 Oxygen Delivery Method 08/23/23 13:34 08/23/23 13:34 08/23/23 14:00 Temperature Pulse Rate 66 67 Respiratory Rate 22 19 Blood Pressure 236/109 H Pulse Oximetry 100 100 Oxygen Delivery Method 08/23/23 14:16 08/23/23 14:18 08/23/23 14:18 Temperature Pulse Rate 69 44 L Respiratory Rate 5 L Blood Pressure 207/90 H 207/90 H Pulse Oximetry 100 Oxygen Delivery Method 08/23/23 14:30 08/23/23 14:30 08/23/23 15:00 Temperature Pulse Rate 39 L Respiratory Rate 15 Blood Pressure 194/83 H 214/98 H Pulse Oximetry 99 Oxygen Delivery Method 08/23/23 15:00 08/23/23 15:16 08/23/23 15:16 Temperature Pulse Rate 72 51 L 75 Respiratory Rate 12 9 L Blood Pressure 224/96 H Pulse Oximetry 100 96 Oxygen Delivery Method 08/23/23 15:16 08/23/23 15:30 08/23/23 15:30 Temperature Pulse Rate 48 L Respiratory Rate 11 L Blood Pressure 224/96 H 193/88 H Pulse Oximetry 100 Oxygen Delivery Method 08/23/23 15:38 08/23/23 16:00 08/23/23 16:00 Temperature Pulse Rate 74 74 Respiratory Rate 9 L Blood Pressure 193/88 H 195/95 H Pulse Oximetry 98 Oxygen Delivery Method 08/23/23 16:30 08/23/23 16:30 08/23/23 17:00 Temperature Pulse Rate 74 Respiratory Rate 11 L Blood Pressure 191/92 H Pulse Oximetry 100 78 L Oxygen Delivery Method 08/23/23 17:01 08/23/23 17:01 08/23/23 17:25 Temperature Pulse Rate 43 L 53 L Respiratory Rate 14 Blood Pressure 169/80 H 169/80 H Pulse Oximetry 99 100 Oxygen Delivery Method Room Air Medical Decision Making Lab Data 08/23/23 12:11 08/23/23 12:11 Labs: Lab Results 08/23/23 Range/Units 12:11 WBC 6.0 (4.5-11.0) X10^3/uL RBC 4.68 (4.5-5.9) X10^6/uL Hgb 15.2 (13.5-17.5) g/dL Hct 43.8 (41-53) % MCV 93.6 (80-100) fL MCH 32.5 (26-34) PG MCHC 34.7 (30-36) % RDW 12.7 (11.6-14.8) % Plt Count 212 (150-400) X10^3/uL Neut % (Auto) 59.5 (50-75) % Lymph % (Auto) 25.0 (25-40) % [place] % (Auto) 11.5 (3-14) % Eos % (Auto) 2.9 (2-4) % Baso % (Auto) 1.1 (0-2) % Neut # (Auto) 3500 (5019-8033) /uL Lymph # (Auto) 1500 (4172-8291) /uL [place] # (Auto) 700 (0-900) /uL Eos # (Auto) 200 (0-450) /uL Baso # (Auto) 100 (0-100) /uL PT 11.3 (9.4-12.5) SECONDS INR 1.0 (0.9-1.3) APTT 37 H (25.1-36.5) SECONDS Sodium 134 L (137-145) mmol/L Potassium 5.5 H (3.4-5.1) mmol/L Chloride 100 (98-107) mmol/L Carbon Dioxide 29 (22-32) mmol/L BUN 15 (9-20) mg/dL Creatinine 0.66 (0.66-1.25) mg/dL Estimated GFR > 60 (>60) mL/min BUN/Creatinine Ratio 22.7 H (6-22) Glucose 105 (80-110) mg/dL Calcium 10.3 H (8.4-10.2) mg/dL Magnesium 2.2 (1.6-2.3) mg/dL Total Bilirubin 1.1 (0.2-1.3) mg/dL AST 34 (17-59) IU/L ALT 23 (<50) IU/L Alkaline Phosphatase 100 (38-126) U/L Total Creatine Kinase 49 L (55-170) U/L Troponin I < 0.012 (0.01-0.034) ng/mL Total Protein 8.3 H (6.3-8.2) g/dL Albumin 4.9 (3.5-5.0) g/dL Globulin 3.4 (1.7-4.1) g/dL Albumin/Globulin Ratio 1.4 (1.0-2.8) Lipase 83 (23-300) U/L Urine Dip Bedside Urine Glucose Negative Bedside Urine Bilirubin - Negative Bedside Urine Ketone - Negative Urine Specific [place] 1.010 Bedside Urine Occult Blood - Negative Bedside Urine pH 7.0 Bedside Urine Protein - Negative Bedside Urine Urobilinogen - Negative Bedside Urine Nitrite - Negative Bedside Urine Leukocytes - Negative Esterase Point of care testing: Urine Dip Bedside Urine Glucose Negative Bedside Urine Bilirubin - Negative Bedside Urine Ketone - Negative Urine Specific [place] 1.010 Bedside Urine Occult Blood - Negative Bedside Urine pH 7.0 Bedside Urine Protein - Negative Bedside Urine Urobilinogen - Negative Bedside Urine Nitrite - Negative Bedside Urine Leukocytes - Negative Esterase Imaging Data Chest x-ray: Radiologist's Impression: [address] [address] XRay Report Signed Patient: Annia Waite MR#: [id number] : 1945 Acct:[id number] Age/Sex: 77 / M Date of Service: 08/23/23 Loc: ED Accession Number: [id number] Procedure: XR chest 1V Ordering Provider: Estefany Maier D.O. PROCEDURE: XR CHEST 1V INDICATIONS: chest pain TECHNIQUE: One view of the chest was acquired. COMPARISON: [facility], CR, XR CHEST 1V, 12/21/2021, 13:22. FINDINGS: Surgical changes and devices: None. Lungs and pleura: Lungs are clear. No pleural effusions or pneumothorax. Mediastinum: Mediastinal contours appear normal. Heart size is normal. Bones and chest wall: No suspicious bony lesions. Overlying soft tissues appear unremarkable. IMPRESSION: No acute cardiopulmonary abnormality is seen. Dictated by: Barbra Giron M.D. on 08/23/2023 at 12:19 Approved by: Barbra Giron M.D. on 08/23/2023 at 12:19 ECG Data Attestation: I personally reviewed and interpreted this ECG as follows: Interpretation: Sinus bradycardia first-degree AV block premature atrial complexes sometimes almost bigeminy. Patient does not appear to be dropping and he beats there appears to be a P wave with the right QRS there is some difference in the length of the ME. Rate of 56 ME 248 QRS of 96 QTC 424. MDM Narrative Medical decision making narrative: This is a 77-year-old with of dizziness last Talha hypertension his asked him to recheck his blood pressure today and was like 240/120. Can use to be fairly hypertensive although evaluation of his prior visits shows patient has pretty consistently elevated similar ranges. Labs show white count of 6 hemoglobin of 15 platelets of 212, coags are appropriate potassium 5.5 sodium is 134 creatinine, BUN and CO2 are appropriate calcium slightly elevated at 10.3 LFTs are appropriate troponin is negative. Chest x-ray shows no acute change Head CT shows no acute change, atrophy and chronic ischemic changes. EKG shows bradycardia with first-degree block with premature atrial complexes sometimes almost a bigeminal but does not appear to be secondary block there are no missing QRS is with a P waves. Patient is on metoprolol his heart rate has sometimes been going low so we will give a dose of hydralazine instead of beta juana, he is maxed out on his losartan. He has consistently been quite elevated in his blood pressure on past visits. Spoke with cardiology , Dr. Saini. Patient is supposed to follow up with his group after his ZIO patch. Noted patient has bright bradycardic potassium is somewhat high. He would recommend decreasing metoprolol to 25 mg extended release stopping his losartan as it maybe contributing to hyperkalemia and arrhythmia. Adding amlodipine and HCTZ 12.5 mg with a repeat EKG in 1-2 days as well as repeat BMP in 1 week. Patient's blood pressures had some mild improvement patient has been quite hypertensive on past visits so do not want to totally normalize as this also might not be good for his brain. Patient's heart rate has improved somewhat to the 60s 70s. Discussed with patient need for follow-up changes to medications he feels comfortable this would very much like to return home at this time. Discharge Plan Departure Patient Disposition: Home Clinical Impression: Hypertension, Bradycardia Activity Restrictions/Additional Instructions: You have elevated blood pressure but your heart rate has sometimes been quite slow and although you have sinus bradycardia sometimes irregular. I spoke with Cardiology they recommended that we adjust your medications. You should have a repeat EKG in the next 24-48 hours as well as a repeat BMP in the next week. Contact Dr. Allen and they can order this for you. Decrease your metoprolol extended release to 25 mg once daily Stop your losartan this is secondary to the elevated potassium on your labs. Start amlodipine 5 mg once daily and hydrochlorothiazide 12.5 mg daily. Take your next dose this evening Prescription sent to [facility] in [place]. You may return at any time if you have new dizziness, chest pain or shortness of breath, lightheadedness or passing out, vomiting, new swelling of extremities, irregular tachycardic heart rate or other new or concerning changes. Prescriptions: New metoprolol succinate 25 mg capsule,bettina,ER 24hr 25 mg PO DAILY Qty: 30 0RF amlodipine 5 mg tablet 5 mg PO DAILY Qty: 10 0RF hydrochlorothiazide 12.5 mg tablet 12.5 mg PO DAILY Qty: 10 0RF No Action tamsulosin 0.4 mg capsule 0.4 mg PO DAILY Referrals: Den Allen MD [Primary Care Provider] - Stand Alone Forms: Patient Portal/API
--- NOTE | 2023-08-23 13:32 | DI.CT.S_ITS ---
PROCEDURE: CT HEAD/BRAIN WO CON INDICATIONS: htn, dizzy TECHNIQUE: Noncontrast 4.5 mm thick angled axial sections acquired from the foramen magnum to the vertex, with coronal and sagittal reformats. For radiation dose reduction, the following was used: automated exposure control, adjustment of mA and/or kV according to patient size. COMPARISON: [facility], CT, CT HEAD/BRAIN WO CON, 12/21/2021, 14:01. FINDINGS: Image quality: Diagnostic. CSF spaces: Basal cisterns are patent. No extra-axial fluid collections. Ventricles are normal in size and shape. Brain: No midline shift. No intracranial masses or hemorrhage. Mahmood-white matter interface is normal. Skull and face: Calvarium and visualized facial bones are intact, without suspicious lesions. Sinuses: Visualized sinuses and mastoids are clear. IMPRESSION: Atrophy and chronic ischemic change without intracranial hemorrhage or mass effect Approved by: Keegan Cohen M.D. on 08/23/2023 at 14:33
[2023-08-23] MEDS: HYDRALAZINE 20 MG/ML VIAL 5 MG IV (14:16)
[2023-08-23] MEDS: HYDRALAZINE 25 MG TABLET PO (15:38)
== END 2023-08-23 17:26 | disposition home or self-care (01) ==
PROVIDERS: Emergency Provider Emergency Medicine; PCP Family Medicine
DX: I10 Essential (primary) hypertension (principal); R00.1 Bradycardia, unspecified; R07.9 Chest pain, unspecified; I44.0 Atrioventricular block, first degree
CPT/HCPCS: 36415; 70450; 71045; 80053; 81003; 82550; 83690; 83735; 84484; 85025; 85610; 85730; 93005; 96374; 99284; J0360

== ENCOUNTER → 2023-11-19 06:40 | Outpatient (CLI) | payer OTHER, SELFPAY ==
--- NOTE | 2023-11-19 06:41 | DI.ECHO.S_ITS ---
[place] [facility]+ [facility] : : [address] : : [place] : : [id number] : : Phone: [phone] Echocardiogram Report + + :Name: VALENTE GARCÍA Study Date: 11/19/2023 Height: 68 in : :[facility] ReadingLocation: Weight: 185 lb : : Gender: Male BSA: 2.0 m2 : :: 1945 Age: 78 yrs BP: 142/78 mmHg: :Reason For Study: PAROX ATRIAL TACHYCARDIA : :Ordering Physician: BARRINGTON GILL Performed By: Heydi Wilde : :Referring: BARRINGTON AMEZQUITA : + + Interpretation Summary 1. The left ventricular contractility is hyperdynamic. Estimated ejection fraction is greater than 70% with near obliteration of the left ventricular cavity at end systole. There is also systolic anterior motion of the subchordal structure of the anterior mitral valve leaflet resulting in an intraventricular gradient. 2. The right ventricular contractility is normal. 3. The left atrium is moderately dilated. The left ventricle is underfilled as mentioned above. The right atrium and right ventricle are of normal size. 4. No significant valvular abnormalities are appreciated. 5. No obvious intracardiac shunts. 6. No obvious intracardiac masses nor thrombi appreciated. 7. No hemodynamically significant pericardial effusion. 8. No echocardiographic evidence of elevated right-sided filling pressures. Conclusion: Normal biventricular systolic function with evidence of an underfilled state. Procedure: A two-dimensional transthoracic echocardiogram with color flow and Doppler was performed. The study quality was technically adequate. There is no prior echocardiogram noted for this patient. The patient was in sinus bradycardia with heart rates between 55-65 bpm during the exam. Left Ventricle: The left ventricular cavity is small. There is normal left ventricular wall thickness. The ejection fraction is estimated to be 65-70%. Right Ventricle: The right ventricle is normal in size and function. Atria: The left atrium is moderately dilated. Right atrial size is normal. There is no Doppler evidence for an interatrial shunt. Mitral Valve: The mitral valve is normal in structure and function. There is trace mitral regurgitation. Aortic Valve: The aortic valve is trileaflet. The aortic valve is mildly calcified. There is no aortic valve stenosis. No aortic regurgitation is present. Tricuspid Valve: The tricuspid valve is normal in structure and function. There is mild tricuspid regurgitation. The right ventricular systolic pressure is estimated to be at least 28 mmHg based on an estimated right atrial pressure of 3 mm Hg. Pulmonic Valve: The pulmonic valve leaflets are thin and pliable; valve motion is normal. There is trace pulmonic regurgitation. Great Vessels: The aortic root is normal size. The ascending aorta is at the upper limits of normal in size. The IVC has a measurement of 0.7 mm. Pericardium/ Pleura There is no pericardial effusion. There is no pleural effusion. MMode/2D Measurements & Calculations LVIDd: 3.9 cm LVOT diam: 2.0 cm LVIDs: 2.5 cm Ao root diam: 3.5 cm FS: 35.1 % asc Aorta Diam: 4.0 cm IVSd: 0.92 cm Ao Arch Diam (Prox Trans): 2.7 cm LVPWd: 1.0 cm LV pathak. diameter/BSA (cm/m^2): 2.0 LV sys. diameter/BSA (cm/m^2): 1.3 LA A2 area: 25.7 cm2 RA long axis: 5.3 cm LA A4 area: 25.3 cm2 RA area: 17.0 cm2 LA length (vol): 6.2 cm RA vol: 46.8 ml LA vol: 89.6 ml RA : 23.7 ml/m2 LA vol index: 45.3 ml/m2 IVC diam: 0.70 cm RVD1 (basal): 4.0 cm RVD2 (mid): 3.4 cm TAPSE: 2.0 cm Doppler Measurements & Calculations Ao V2 max: 173.8 cm/sec LVOT Max Mark: 131.8 cm/sec Ao V2 mean: 124.0 cm/sec LV V1 max P.9 mmHg Ao max P.1 mmHg LV V1 VTI: 29.9 cm Ao mean P.7 mmHg CHRISTOPHER(I,D): 2.3 cm2 Ao V2 VTI: 43.2 cm CHRISTOPHER(V,D): 2.5 cm2 sev ratio: 0.69 CHRISTOPHER indexed to BSA (cm^2/m^2): 1.2 MV E max mark: 61.7 cm/sec TR max mark: 248.2 cm/sec MV A max mark: 101.3 cm/sec TR max P.7 mmHg MV E/A: 0.61 PA V2 max: 66.9 cm/sec Med Peak E' Mark: 6.5 cm/sec PA V2 mean: 51.4 cm/sec E/E' med: 9.6 PA mean P.1 mmHg Lat Peak E' Mark: 6.3 cm/sec PA pr(Accel): 42.2 mmHg E/E' lat: 9.9 E/e' average: 9.7 MV dec time: 0.46 sec SV(LVOT): 98.4 ml Reading Physician:
== END ==
PROVIDERS: PCP Family Medicine; Referring Provider Internal Medicine; Visit Provider Internal Medicine
DX: I47.19 Other supraventricular tachycardia (principal); I07.1 Rheumatic tricuspid insufficiency
CPT/HCPCS: 93306

== ENCOUNTER → 2023-12-07 07:37 | Outpatient (CLI) | payer OTHER, SELFPAY ==
--- NOTE | 2023-12-07 | DI.NM.S_ITS ---
PROCEDURE: NM EXERCISE TREADMILL NON NUC COMPARISON: None. INDICATIONS: ANGINA PECTORIS FINDINGS: Total exercise time was 6 minutes and 5 seconds. Test terminated secondary to fatigue. Maximum heart rate obtained is under 38 bpm which is 98% of max predicted heart rate. Maximum blood pressure 182/[place] [address]. DEXTER -15%. 7.0 METS. No ischemic changes noted. No chest pains voiced. Normal heart rate and blood pressure response to exercise. No arrhythmias noted. IMPRESSION: 1. Negative exercise treadmill stress test in terms of ischemia. 2. Above average exercise tolerance. Dictated by: Juan Amezquita M.D. on 12/07/2023 at 13:05 Approved by: Juan Amezquita M.D. on 12/07/2023 at 13:07
== END ==
LOC: RAD 07:37
PROVIDERS: PCP Family Medicine; Referring Provider Internal Medicine; Visit Provider Internal Medicine
DX: I20.9 Angina pectoris, unspecified
CPT/HCPCS: 93017

== ENCOUNTER → 2024-03-27 08:42 | Outpatient (CLI) | payer OTHER, SELFPAY | PROVIDERS: PCP Family Medicine; Visit Provider Urology | DX: N40.1 Benign prostatic hyperplasia with lower urinary tract symptoms (principal); N13.8 Other obstructive and reflux uropathy; N39.43 Post-void dribbling; R39.11 Hesitancy of micturition; R39.13 Splitting of urinary stream; R35.1 Nocturia; N31.8 Other neuromuscular dysfunction of bladder; Z87.438 Personal history of other diseases of male genital organs; Z87.891 Personal history of nicotine dependence | CPT/HCPCS: 81002; 87077; 87086; 87186; 99214 ==

== ENCOUNTER → 2024-04-10 11:21 | Outpatient (CLI) | payer OTHER, SELFPAY ==
[2024-04-10 13:22] LABS: Prostate Specific Antigen Scrn 7.93 ng/mL (0.1-4.0)
== END ==
PROVIDERS: PCP Family Medicine; Referring Provider Urology; Visit Provider Urology
DX: Z12.5 Encounter for screening for malignant neoplasm of prostate (principal)
CPT/HCPCS: 36415; G0103

== ENCOUNTER → 2024-04-14 15:05 | Outpatient (CLI) | payer OTHER, SELFPAY ==
--- NOTE | 2024-04-14 15:32 | DI.MRI.S_ITS ---
PROCEDURE: MR PELVIC PROSTATE PROTOCOL INDICATIONS: Elevated PSA, family history prostate cancer TECHNIQUE: Coronal HASTE, axial T1 FSE with fat saturation, 3-plane nonbreath-hold T2 FSE. After the administration of contrast, dynamic axial, delayed axial and coronal VIBE or 2-D FLASH with fat saturation through the pelvis. Diffusion weighted imaging and ADC was performed. COMPARISON: None. FINDINGS: Image quality: Diffusion weighted and dynamic contrast enhanced images are diagnostic. Prostate: Gland size is 5.9 x 4.4 x 5.3 cm; ellipsoid gland volume is 72 mL. PSA density of 0.11, not suspicious. Hypertrophy of the transition zone with encapsulated and partially encapsulated nodules. Genitourinary system: Bladder wall thickness is normal. Distal ureters are non distended. Bowel and peritoneum: No pathologic free pelvic fluid. Inferior colon and small bowel loops are normal in caliber. Nodes and vessels: No pelvic or inguinal adenopathy by size criteria. Iliac vessels are normal in caliber. Soft tissues: No inguinal hernias. Bones: Marrow demonstrates normal overall signal, without lesions to suggest metastases. IMPRESSION: Prostate hypertrophy. No PI-RADS 3 through 5 lesions. No pelvic lymphadenopathy by size criteria. No aggressive osseous abnormality. Dictated by: Agustin Garsia M.D. on 04/15/2024 at 13:58 Approved by: Agustin Garsia M.D. on 04/15/2024 at 14:05
== END ==
PROVIDERS: PCP Family Medicine; Referring Provider Urology; Visit Provider Urology
DX: N40.0 Benign prostatic hyperplasia without lower urinary tract symptoms (principal); R97.20 Elevated prostate specific antigen [PSA]; Z80.42 Family history of malignant neoplasm of prostate
CPT/HCPCS: 72197; A9579

== ENCOUNTER → 2024-05-02 10:58 | Outpatient (CLI) | payer OTHER, SELFPAY ==
--- NOTE | 2024-05-02 10:59 | DI.US.S_ITS ---
PROCEDURE: US RETRO PERITONEAL LIMITED INDICATIONS: FORMER SMOKER TECHNIQUE: Real time scanning was performed of the aorta and iliac arteries, with image documentation. COMPARISON: None. FINDINGS: Aorta: Proximal aortic diameter measures 3.3 cm. Mid-aorta measures 2.1 cm. Distal aortic diameter is 3.5 cm; this is unchanged. Iliac arteries: Right common iliac artery measures 1.7 cm. Left common iliac artery measures 2.1 cm. IMPRESSION: Stable distal aortic aneurysm measuring 3.5 cm. Continued 3 year sonographic follow-up is recommended, per consensus guidelines. Dictated by: Agustin Garsia M.D. on 05/04/2024 at 8:49 Approved by: Agustin Garsia M.D. on 05/04/2024 at 8:50
== END ==
PROVIDERS: PCP Family Medicine; Referring Provider Family Medicine; Visit Provider Family Medicine
DX: I71.43 Infrarenal abdominal aortic aneurysm, without rupture (principal); Z87.891 Personal history of nicotine dependence
CPT/HCPCS: 76775

== ENCOUNTER 2024-09-02 07:47 | Day surgery (SDC) | payer OTHER, SELFPAY ==
[2024-08-27 11:00] VITALS: BMI 29.0
[2024-09-02] VITALS (11 sets, daily range): BP systolic 122–173; BP diastolic 66–81; PULSE 60–80; RESP 10–18; TEMP 36.1–37.2; O2SAT 92–100; BMI 29.0
--- NOTE | 2024-09-02 | PATH_ITS ---
[facility] Accession Number: [id number] No. of containers..01 Tissue . 01 Material submitted: . prostate - PROSTATE CHIPS . 01 Diagnosis: PROSTATE, TURP: Benign prostatic parenchyma and smooth muscle bundles. No evidence of malignancy. MRV 09/05/2024 1438 Local . 01 Electronically signed: . Jimmie Lira MD, PhD, Pathologist NPI- [id number] . 01 Gross description: . Received in formalin with two identifiers and prostate chips, is a small amount of fuentes soft tissue fragments admixed with a large amount of hemorrhagic material weighing 14 grams and aggregating to 5.7 x 5.0 x 2.4 cm. All identifiable fuentes soft fragments with a small amount of hemorrhagic material is submitted in cassettes A1-A3. ([id number]) /VELMA 09/03/2024 1916 Local . 01 Pathologist provided ICD-10: N40.1 . 01 CPT . 326114 Specimen Comment: A courtesy copy of this report has been sent to [phone] Performed at: [address] [facility] [address] [address], [place], [place] [id number] MD Nicolas Andrade MD Phone: [phone]
[2024-09-02] MEDS: LACTATED RINGERS 1,000 ML 21 ML IV ×2 (08:47→10:57)
--- NOTE | 2024-09-02 09:34 | PM.PREOP ---
Pre-operative Note COVID-19 COVID-19 status: Not tested Interval Note History & Physical reviewed/Exam performed by Physician: Yes Changes to H&P: No
[2024-09-02] MEDS: CEFAZOLIN 2 GM/100 ML PREMIX 100 ML IV (10:10)
--- NOTE | 2024-09-02 10:28 | SUR.OPER ---
Lithotomy on padded OR bed, head on pillow, arms secured on padded arm boards at <90 degrees abduction. Legs secured in padded yellow fins stirrups.
--- NOTE | 2024-09-02 11:26 | P.OP_ITS ---
Operative Date/Time/Diagnoses Date of procedure: 09/02/24 Time of procedure: 11:27 Pre-op diagnosis: BPH with LUTS failing medical management Post-op diagnosis: same Procedure & Clinicians Procedure: 1. Aquablation 2. Transrectal ultrasound of prostate 3. Transurethral resection of prostate with fulguration 4. Placement of Patel catheter Same procedure as scheduled: Yes Indications: This 78-year-old male presented with worsening complaints of BPH with LUTS on maximal medical therapy. He underwent workup and was found to have on uroflow a Q max of 4.8 with an average flow of 3.8 with a PVR of 299 mL. His AUA symptom score was 20 with a bothersome index of 3. By prostate ultrasound his prostate was measured at 61.3 g or mL. Patient had an elevated PSA underwent MRI which showed no worrisome lesions. At cystoscopy patient had severe obstructive character bilobar with some bulging into the bladder and perhaps a very nacent or small median lobe patient wishes Aquablation to treat his symptoms and presents for the same at this time. Surgeon: Tobias Don Click Yes if Unassisted: Yes Anesthesia Type: General Operative Notes Findings: Urethral meatus is normal urethra is normal along its length with normal mucosa. Sphincter as well coapted prostate shows marked obstructive character with some bulging into the bladder. The bladder exhibits severe trabeculation cellules and perhaps a small diverticula ureteral orifices in normal position with clear efflux. At the end of the procedure the prostatic fossa was widely patent no longer obstructed the ureteral orifices were intact and unaffected by the procedure in the patient had a vigorous stream with the bladder fold as instrument was removed. The patient had a [address] [place] [address] hematuria catheter left in place with 45 cc in the balloon and connected to continuous bladder irrigation. The effluent was light pink there were no other abnormalities noted. Closure Type: not applicable Specimen(s): other (Prostate chips) Prosthetic devices, grafts, tissues, transplants, or devices: [address] [place] [address] hemat[address] catheter with 45 cc in the balloon. Estimated Blood Loss (mL): 25 Procedure in detail: Procedure in detail: After informed consent was obtained, the patient was identified brought to the operating room where he was placed in the supine position on the table. Once there anesthesia was induced and maintained. Ensuring an adequate level of anesthesia the patient was transitioned to the lithotomy position where he was prepped in a sterile fashion. After prepping, ensuring an adequate level of anesthesia, antibiotics, after time-out the ultrasound probe was inserted in the following fashion. It he had been attached to the truss stepper which was attached to the articulating are which was attached to the bed. Patient had 60 cc of ultrasound gel instilled in the rectum followed by the ultrasound probe. Using real-time live ultrasound the ultrasound probe was aligned and confirmation that it was centered end of the prostate was again centered in both the transverse and longitudinal views. The bladder neck bladder verumontanum central and transition zones were identified with the ultrasound. With the ultrasound aligned and in good position with some compression on the prostate the patient was then draped in the sterile fashion. With the patient draped the 24 [place] Aquablation handpiece was inserted through the urethra prostate and into the bladder. This was done under direct vision. As it was inserted the external sphincter, verumontanum, bladder neck were noted visually and by the ultrasound. The level of the verumontanum was marked and noted again on the ultrasound. The Aquablation handpiece this was then secured to the handpiece articulating arm which he had been secured to the bed. The alignment of the hand piece and the truss probe was confirmed and noted that they were parallel and colinear. The Aquablation nozzle was confirmed to be centered and anterior to the bladder neck. With this in place and it is secured to the bed the cystoscope was then retracted to visualize the verumontanum and external sphincter. The tip of the scope was left just proximal to the external sphincter. Alignment of the truss probe and him piece was once again confirmed and again appropriate compression applied via the truss probe. Horizontal alignment of the hand piece water jet was then confirmed to be at the 3 and 9 o'clock position. With this done the treatment zones were then planned using real-time ultrasound. In the largest transverse section the depth and radial angles were set and entered into the software. In the sagittal view the Aquablation nozzle was identified its position marked and registered with the software as was the tip of the scope the end of treatment. With this in place in the sagittal view the treatment start bladder neck mid prostate and tip of the scope were verumontanum were registered. Then the contours were adjusted to conform to the intended and needed resection margins. With this completed and entered into the programming ensuring that the patient would not move the Aquablation treatment was started and followed the resection contours. This was followed under live real time ultrasound and adjustments made as needed. With the 1st pass completed which took 3 minutes and 23 seconds a 2nd pass was plan and adjustments made and the 2nd pass was completed total time for this pass was 3 minutes 38 seconds. With the 2nd pass completed in the prostate appearing widely patent the scope was advanced to the tip of the hand piece. The handpiece was detached from the articulating arm and then looked out under direct vision. The articulating arm was moved ?out of the way?. A resectoscope was then inserted under direct vision through the urethra prostate and into the bladder. Once there and helical evacuator was used to evacuate clot and other debris from the bladder. With the stone the working element was inserted and the ureteral orifices were identified and the bladder neck resected from the 10 to 2 o'clock position with points of bleeding and arterial bleeders controlled with the electrocautery. Anteriorly there was some bleeding noted this was controlled with the electrocautery. On the posterior left there was a small amount of apical tissue which was resected. With this done the [employer] evacuator was once again employed to evacuate the prostate chips. Once again points of bleeding were controlled with the electrocautery and the effluent was at most slightly pink. At this point with all the chips evacuated hemostasis achieved the bladder was left school the scope resectoscope was removed and patient had a vigorous stream. Then with the aid of a cath guide the 24 [place] catheter was easily passed into the bladder using ultrasound as guidance. Ultrasound probe at this point was removed the balloon was filled with 45 cc of sterile water and placed to gravity drainage and continuous bladder irrigation. Patient was awakened having tolerated the procedure well there were no complications in the patient was transferred to the postanesthesia care unit for recovery total time appeared to be approximately 45 minutes Complications: none Post-operative Condition: stable Disposition: PACU Plan for aftercare: Patient will be recovered in postanesthetic care unit in a determination made on whether the patient will stay for further continuous bladder irrigation or di scharge to home. The patient will follow up my office in 1 week next Sunday for voiding trial and catheter removal.
[2024-09-02] MEDS: PHENAZOPYRIDINE 100 MG TABLET 200 MG PO (11:47)
[2024-09-02] MEDS: OXYBUTYNIN 5 MG TABLET PO (11:47)
[2024-09-02] MEDS: OXYCODONE/ACETAMINOPHEN 5/325 TABLET 1 TAB PO (13:41)
[2024-09-02] MEDS: ACETAMINOPHEN 325 MG TABLET 650 MG PO (13:41)
== END 2024-09-02 16:36 | disposition home or self-care (01) ==
PROVIDERS: PCP Family Medicine; Referring Provider Urology; Visit Provider Registered Nurse Critical Care Medicine
PROC: 0VT08ZZ Resection of Prostate, Via Natural or Artificial Opening Endoscopic (ICD-10-PCS; CPT 0421T; principal; 2024-09-02 09:45)
DX: N40.1 Benign prostatic hyperplasia with lower urinary tract symptoms (principal); R35.1 Nocturia; R39.12 Poor urinary stream; R39.11 Hesitancy of micturition; Z87.891 Personal history of nicotine dependence; R97.20 Elevated prostate specific antigen [PSA]; N39.43 Post-void dribbling
CPT/HCPCS: 0421T; 82962; C2596; J0690; J2250; J2704; J3010; J3490

== ENCOUNTER → 2024-09-09 15:24 | Outpatient (CLI) | payer OTHER, SELFPAY | PROVIDERS: PCP Family Medicine; Visit Provider Urology | DX: N40.1 Benign prostatic hyperplasia with lower urinary tract symptoms (principal); N13.8 Other obstructive and reflux uropathy; Z68.29 Body mass index [BMI] 29.0-29.9, adult | CPT/HCPCS: 51798; 81002; 87086 ==

== ENCOUNTER → 2024-09-11 11:13 | Outpatient (CLI) | payer OTHER, SELFPAY | PROVIDERS: PCP Family Medicine; Visit Provider Urology | DX: N31.8 Other neuromuscular dysfunction of bladder (principal); R35.1 Nocturia | CPT/HCPCS: 87086 ==

== ENCOUNTER → 2024-09-26 13:32 | Outpatient (CLI) | payer OTHER, SELFPAY | PROVIDERS: PCP Family Medicine; Visit Provider Urology | DX: N31.8 Other neuromuscular dysfunction of bladder (principal); R35.1 Nocturia | CPT/HCPCS: 87077; 87086; 87186 ==